=== PATIENT | male | born 1995 | race Caucasian/White ===

== ENCOUNTER 2017-01-04 16:30 | Emergency (ER) | payer OTHER, SELFPAY ==
[~2017-01-04] VITALS: Ht 172.7 cm; Wt 65.9 kg
[2017-01-04 20:09] VITALS: BP 128/62
--- NOTE | 2017-01-05 07:13 | ECGEPIP ---
Stationary ECG Study [facility] - ED Test Date: 2017-01-04 Pat Name: VICTOR MANUEL FISHER Department: Room: - Gender: M Travel Registered Nurse Oncology: tm : 1995 Requested By: WENCESLAO Stock PA-C Order Number: [id number] Reading MD: Flip Montes Measurements Intervals [place] Rate: 52 P: 74 DC: 143 QRS: 78 QRSD: 86 T: 47 QT: 381 QTc: 356 Interpretive Statements SINUS BRADYCARDIA WITH OCCASIONAL SUPRAVENTRICULAR PREMATURE COMPLEXES ST ELEVATION, PROBABLY EARLY REPOLARIZATION POSSIBLE LEFT ATRIAL ENLARGEMENT NO PRIORS Electronically Signed On 01-05-2017 7:12:43 EDT by Flip Montes
== END 2017-01-04 20:11 | disposition home or self-care (01) ==
LOC: M ED 16:30
DX: R07.89 Other chest pain (principal); Z72.0 Tobacco use

== ENCOUNTER 2019-04-18 16:29 | Emergency (ER) | payer OTHER, SELFPAY ==
[~2019-04-18] VITALS: Ht 175.3 cm; Wt 65.5 kg
[2019-04-18] MEDS ORDERED: ZOFR4TAB16 PO (16:37)
[2019-04-18 17:39] LABS: INFLUENZA A AMPLIFICATION NEGATIVE (NEGATIVE); INFLUENZA B AMPLIFICATION NEGATIVE (NEGATIVE)
[2019-04-18] MEDS ORDERED: NS 1,000 ML IV ONE (18:15)
[2019-04-18] MEDS ORDERED: ONDANSETRON 4MG/2ML VIAL (J2405) IV ONE (18:15)
[2019-04-18 18:30] LABS: BASO % 0.6 % (0.0-1.0); EOS # 0.1 10^3/uL (0.0-0.5); EOS % 1.8 % (0.0-3.0); HEMOGLOBIN 14.5 g/dl (13.5-17.5); LYMPH # 2.5 10^3/uL (1.5-5.0); LYMPH % 36.1 % (24.0-44.0); MEAN CORPUSCULAR HEMOGLOBIN 29.7 pg (27.0-33.0); MEAN CORPUSCULAR VOLUME 90.2 fl (80.0-96.0); MONO # 0.5 10^3/uL (0.0-0.8); MONO % 7.8 % (0.0-5.0); NEUTROPHILS # 3.6 10^3/uL (1.5-8.5); NEUTROPHILS % 53.4 % (36.0-66.0); PLATELET COUNT, AUTOMATED 318 10^3/uL (150-450); RED BLOOD COUNT 4.88 10^6/uL (4.30-6.10); WHITE BLOOD COUNT 6.8 10^3/uL (4.0-10.0)
[2019-04-18 18:56] LABS: ALBUMIN 4.7 GM/DL (3.2-5.2); ALT/SGPT 26 U/L (12-78); BILIRUBIN,DIRECT 0.1 MG/DL (0.0-0.2); BILIRUBIN,TOTAL 0.5 MG/DL (0.2-1.0); BLOOD UREA NITROGEN 15 MG/DL (7-18); CARBON DIOXIDE LEVEL 30 MEQ/L (21-32); CHLORIDE LEVEL 105 MEQ/L (98-107); CREATININE FOR GFR 1.14 MG/DL (0.70-1.30); GLOMERULAR FILTRATION RATE > 60.0 (>60); GLUCOSE, FASTING 90 MG/DL (70-100); LIPASE 123 U/L (73-393); SODIUM LEVEL 139 MEQ/L (136-145); TOTAL PROTEIN 8.3 GM/DL (6.4-8.2)
[2019-04-18] MEDS ORDERED: ISOVUE-370 76% 100ML VIAL (Q9967) As Ordered ONE (18:57)
--- NOTE | 2019-04-18 19:27 | REPVR ---
PROCEDURE INFORMATION: Exam: CT Abdomen And Pelvis With Contrast Exam date and time: 04/18/2019 7:05 PM Age: 23 years old Clinical indication: Abdominal pain; Localized; Left lower quadrant (llq); Additional info: Llq pain with n/v R/O diverticulitis TECHNIQUE: Imaging protocol: Computed tomography of the abdomen and pelvis with intravenous contrast. Radiation optimization: All CT scans at this facility use at least one of these dose optimization techniques: automated exposure control; mA and/or kV adjustment per patient size (includes targeted exams where dose is matched to clinical indication); or iterative reconstruction. Contrast material: ISOVUE 370; Contrast volume: 100 ml; Contrast route: IV; COMPARISON: No relevant prior studies available. FINDINGS: Liver: Unremarkable. No mass. Gallbladder and bile ducts: The gallbladder is nearly completely contracted. No calcified gallstone. Normal caliber common bile duct. Pancreas: Unremarkable. No ductal dilation. Spleen: Unremarkable. No splenomegaly. Adrenals: Normal. No mass. Kidneys and ureters: Unremarkable. No stones. No hydronephrosis. Stomach and bowel: Mild wall thickening of the descending colon with minimal hazy density in the adjacent fat is suspicious for mild descending colitis. No colonic diverticuli or colonic diverticulitis. The stomach and small bowel are unremarkable. Appendix: No evidence of appendicitis. Intraperitoneal space: Unremarkable. No free air. No significant fluid collection. Vasculature: Unremarkable. No abdominal aortic aneurysm. Lymph nodes: Unremarkable. No enlarged lymph nodes. Bladder: Unremarkable as visualized. Reproductive: Unremarkable as visualized. Bones/joints: Mild degenerative disc disease at L5-S1. No acute bone or joint abnormality. Soft tissues: Unremarkable. IMPRESSION: Findings suspicious for mild colitis of the descending colon. Electronically signed by: Michael Urena On 04/18/2019 19:29:07 PM
[2019-04-18] MEDS ORDERED: FLAG500T PO (20:14)
[2019-04-18] MEDS ORDERED: CIPR-249 PO (20:14)
[2019-04-18] MEDS ORDERED: metroNIDAZOLE (FLAGYL) 500 MG TAB PO ONE (20:30)
[2019-04-18] MEDS ORDERED: CIPROFLOXACIN 500 MG TAB PO ONE (20:30)
[2019-04-18 20:56] VITALS: BP 148/73
== END 2019-04-18 21:00 | disposition home or self-care (01) ==
LOC: M ED 16:29
DX: K51.90 Ulcerative colitis, unspecified, without complications (principal); Z79.899 Other long term (current) drug therapy
CPT/HCPCS: 74177; 80048; 80076; 81001; 83690; 85025; 87502; 96361; 96374; 99284; J2405; Q9967

== ENCOUNTER 2019-05-11 21:24 | Emergency (ER) | payer OTHER ==
[~2019-05-11] VITALS: Ht 172.7 cm; Wt 66.2 kg
[~2019-05-11 21:24] MED LIST: CIPR-249 PO; FLAG500T PO; ZOFR4TAB16 PO
[2019-05-11 22:09] LABS: BASO # 0.1 10^3/uL (0.0-0.2); BASO % 0.8 % (0.0-1.0); EOS # 0.1 10^3/uL (0.0-0.5); EOS % 1.8 % (0.0-3.0); HEMATOCRIT 40.5 % (42.0-52.0); HEMOGLOBIN 13.3 g/dl (13.5-17.5); LYMPH # 2.5 10^3/uL (1.5-5.0); LYMPH % 41.8 % (24.0-44.0); MEAN CORPUSCULAR HEMOGLOBIN 29.2 pg (27.0-33.0); MEAN CORPUSCULAR HGB CONC 32.8 g/dl (32.0-36.5); MONO # 0.5 10^3/uL (0.0-0.8); MONO % 8.6 % (0.0-5.0); NEUTROPHILS # 2.9 10^3/uL (1.5-8.5); NEUTROPHILS % 46.8 % (36.0-66.0); PLATELET COUNT, AUTOMATED 238 10^3/uL (150-450); RED BLOOD COUNT 4.55 10^6/uL (4.30-6.10); WHITE BLOOD COUNT 6.1 10^3/uL (4.0-10.0)
[2019-05-11 22:47] LABS: ALBUMIN 4.3 GM/DL (3.2-5.2); ALT/SGPT 36 U/L (12-78); BILIRUBIN,DIRECT 0.1 MG/DL (0.0-0.2); BILIRUBIN,TOTAL 0.4 MG/DL (0.2-1.0); BLOOD UREA NITROGEN 17 MG/DL (7-18); CALCIUM LEVEL 8.8 MG/DL (8.5-10.1); CARBON DIOXIDE LEVEL 31 MEQ/L (21-32); CHLORIDE LEVEL 106 MEQ/L (98-107); CREATININE FOR GFR 1.12 MG/DL (0.70-1.30); GLOMERULAR FILTRATION RATE > 60.0 (>60); GLUCOSE, FASTING 90 MG/DL (70-100); LIPASE 129 U/L (73-393); SODIUM LEVEL 139 MEQ/L (136-145); TOTAL PROTEIN 7.6 GM/DL (6.4-8.2)
[2019-05-11] MEDS ORDERED: GASTROGRAFIN SOLUTION 30ML (Q9963) As Ordered ONE (23:30)
[2019-05-11] MEDS: GASTROGRAFIN SOLUTION 30ML PO SCH (23:52)
[2019-05-12] MEDS: GASTROGRAFIN SOLUTION 30ML PO SCH (00:39)
[2019-05-12] MEDS ORDERED: ISOVUE-370 76% 100ML VIAL (Q9967) As Ordered ONE (00:47)
--- NOTE | 2019-05-12 01:58 | REPVR ---
PROCEDURE INFORMATION: Exam: CT Abdomen And Pelvis With Contrast Exam date and time: 05/12/2019 1:20 AM Age: 24 years old Clinical indication: Abdominal pain; Additional info: Llq abd pain TECHNIQUE: Imaging protocol: Computed tomography of the abdomen and pelvis with intravenous contrast. Radiation optimization: All CT scans at this facility use at least one of these dose optimization techniques: automated exposure control; mA and/or kV adjustment per patient size (includes targeted exams where dose is matched to clinical indication); or iterative reconstruction. Contrast material: ISO 370; Contrast volume: 100 ml; Contrast route: IV; Other contrast: Oral; COMPARISON: CT ABD/PEL W/IV CONTRAST ONLY 04/18/2019 7:03 PM FINDINGS: Liver: The liver attenuation is 100 Hounsfield units and the spleen is 135 Hounsfield units. Gallbladder and bile ducts: The gallbladder is contracted with no stones. Pancreas: Normal. No ductal dilation. Spleen: Normal. No splenomegaly. Adrenals: Normal. No mass. Kidneys and ureters: Normal. No hydronephrosis. Stomach and bowel: Much of the colon is collapsed or contracted, particularly distal to the distal transverse colon. Minimal nonspecific left colitis is not excluded. Appendix: There are no changes of appendicitis. A normal appendix is not seen. Intraperitoneal space: Unremarkable. No free air. No significant fluid collection. Vasculature: Low aortic/SMA angle with narrowing of the left renal vein and proximal distension. Incidental note of an accessory retroaortic left renal vein. Findings suggest nutcracker phenomenon. Lymph nodes: Unremarkable. No enlarged lymph nodes. Bladder: There is moderate urinary bladder wall thickening although the bladder is incompletely distended. Reproductive: Unremarkable as visualized. Bones/joints: Unremarkable. No acute fracture. Soft tissues: Unremarkable. IMPRESSION: 1. Mild fatty infiltration of the liver. 2. Question of minimal nonspecific left colitis, increased since 04/18/2019. 3. 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 4. There is moderate bladder wall thickening, however, the bladder is nondistended and is nonspecific. Electronically signed by: Chad Mario On 05/12/2019 01:57:49 AM
[2019-05-12] MEDS ORDERED: NAPR-837 PO (02:49)
[2019-05-12 02:59] VITALS: BP 119/72
--- NOTE | 2019-05-12 10:49 | ED PDOC ---
Post-Departure Follow-Up josias hanson faxed formal report of ct abd/p for fu Paige Hurtado MD May 12, 2019 10:49
== END 2019-05-12 03:00 | disposition home or self-care (01) ==
LOC: M ED 21:24
DX: R10.9 Unspecified abdominal pain (principal); K76.0 Fatty (change of) liver, not elsewhere classified; I87.9 Disorder of vein, unspecified
CPT/HCPCS: 36415; 74177; 80053; 81001; 83690; 85025; 86850; 86900; 86901; 99284; Q9967

== ENCOUNTER 2020-01-07 13:27 | Emergency (ER) | payer OTHER ==
[~2020-01-07] VITALS: Ht 175.3 cm; Wt 66.9 kg
[~2020-01-07 13:27] MED LIST changes: +NAPR-837 PO
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
--- NOTE | 2020-01-07 14:16 | REPVR ---
PROCEDURE INFORMATION: Exam: XR Right Wrist Exam date and time: 01/07/2020 1:52 PM Age: 24 years old Clinical indication: Pain; Wrist; Right; Additional info: Injury TECHNIQUE: Imaging protocol: XR Right wrist. Views: 3 or more views. COMPARISON: No relevant prior studies available. FINDINGS: Bones/joints: No fracture or dislocation at the wrist. The healing fracture of the distal shaft of the right 5th metacarpal is partially imaged. Soft tissues: Soft tissue swelling about the 5th metacarpal fracture is apparent. IMPRESSION: No wrist fracture or dislocation. Electronically signed by: Kym Cadet On 01/07/2020 14:16:43 PM
[2020-01-07 15:06] VITALS: BP 119/71
== END 2020-01-07 15:06 | disposition home or self-care (01) ==
LOC: M ED 13:27
DX: S62.310A Displaced fracture of base of second metacarpal bone, right hand, initial encounter for closed fracture (principal); W22.8XXA Striking against or struck by other objects, initial encounter; Y92.9 Unspecified place or not applicable; Y93.9 Activity, unspecified; Y99.9 Unspecified external cause status; Z79.1 Long term (current) use of non-steroidal anti-inflammatories (NSAID)

== ENCOUNTER 2020-04-19 23:35 | Emergency (ER) | payer OTHER ==
[~2020-04-19] VITALS: Ht 175.3 cm; Wt 71.4 kg
[2020-04-19 23:36] VITALS: BP 139/72
--- OUTSIDE RECORDS SUMMARY | 2020-04-19 23:41 | CCD ---
Author Author [facility] Organization [facility] Address Unknown Phone Unavailable Support Name Relationship Address Phone JOSUE FISHER Next Of Kin [address] [place] [address] [facility] Next Of Kin [address] [place] [address] Unavailable LAURITA GARCIA Next Of Kin [address] [place] [address] Re-disclosure Warning The records that you are about to access may contain information from federally-assisted alcohol or drug abuse programs. If such information is present, then the following federally mandated warning applies: This information has been disclosed to you from records protected by federal confidentiality rules (42 CFR part 2). The federal rules prohibit you from making any further disclosure of this information unless further disclosure is expressly permitted by the written consent of the person to whom it pertains or as otherwise permitted by 42 CFR part 2. A general authorization for the release of medical or other information is NOT sufficient for this purpose. The Federal rules restrict any use of the information to criminally investigate or prosecute any alcohol or drug abuse patient.The records that you are about to access may contain highly sensitive health information, the redisclosure of which is protected by Article 27-F of the [facility] Public Health law. If you continue you may have access to information: Regarding HIV / AIDS; Provided by facilities licensed or operated by the [facility] Office of Mental Health; or Provided by the [facility] Office for People With Developmental Disabilities. If such information is present, then the following [facility] mandated warning applies: This information has been disclosed to you from confidential records which are protected by state law. State law prohibits you from making any further disclosure of this information without the specific written consent of the person to whom it pertains, or as otherwise permitted by law. Any unauthorized further disclosure in violation of state law may result in a fine or intermediate sentence or both. A general authorization for the release of medical or other information is NOT sufficient authorization for further disc losure. Encounters Encounter Providers Location Date Indications Data Source(s ) Outpatient 05/16/2019 02:34:00 PM [facility] Radiology Imaging Insurance Providers Payer name Policy type / Coverage type Policy ID Covered libertarian ID Covered libertarian's relationship to hernandez Policy Hernandez Plan Information EAST ACTIVE DUTY [id number] SP [id number] HUMANA EAST REG O [id number] S [id number] EAST ACTIVE DUTY [id number] SP [id number] EAST ACTIVE DUTY [id number] SP [id number] HUMANA EAST REG O [id number] S [id number] SELF PAY ONLY UNAVAILABLE SP UNAV AILABLE PGBA TECUMSEH DOROTHY O [id number] S [id number] ACTIVE DUTY [id number] SP [id number] N REGIONAL CLAIMS RAN -O/P [id number] 18 [id number]
--- NOTE | 2020-04-20 01:04 | REPVR ---
PROCEDURE INFORMATION: Exam: XR Chest, 2 Views Exam date and time: 04/20/2020 11:33 PM Age: 24 years old Clinical indication: Chest pain; Type not specified; Additional info: Rib pain TECHNIQUE: Imaging protocol: XR of the chest Views: 2 views. COMPARISON: No relevant prior studies available. FINDINGS: Lungs: Unremarkable. No consolidation. Pleural spaces: Unremarkable. No pleural effusion. No pneumothorax. Heart/Mediastinum: Unremarkable. No cardiomegaly. Bones/joints: Unremarkable. IMPRESSION: Negative chest. Electronically signed by: Chad Mario On 04/20/2020 01:04:46 AM
[2020-04-20] MEDS ORDERED: KETOROLAC 30 MG/ML 1ML VIAL IV ONE (02:00)
--- OUTSIDE RECORDS SUMMARY | 2020-04-20 02:05 | CCD ---
Author Author [facility] Organization [facility] Address Unknown Phone Unavailable Support Name Relationship Address Phone JOSUE FISHER Next Of Kin [address] [place] [address] [facility] Next Of Kin [address] [place] [address] Unavailable LAURITA GARCIA Next Of Kin [address] [place] [address] Re-disclosure Warning The records that [...] is protected by Article 27-F of the [facility] Public Health law. If you continue you may have access to information: Regarding HIV / AIDS; Provided by facilities licensed or operated by the [facility] Office of Mental Health; or Provided by the [facility] Office for People With Developmental Disabilities. If such information is present, then the following [facility] mandated warning applies: This information [...] law may result in a fine or fdc sentence or both. A general authorization for the release of medical or other information is NOT sufficient authorization for further disc losure. Encounters Encounter Providers Location Date Indications Data Source(s ) Outpatient 05/16/2019 02:34:00 PM [facility] Radiology Imaging Insurance Providers Payer name Policy type / Coverage type Policy ID Covered libertarian ID Covered libertarian's relationship to hernandez Policy Hernandez Plan Information EAST ACTIVE DUTY [id number] SP [id number] HUMANA EAST REG O [id number] S [id number] EAST ACTIVE DUTY [id number] SP [id number] EAST ACTIVE DUTY [id number] SP [id number] HUMANA EAST REG O [id number] S [id number] SELF PAY ONLY UNAVAILABLE SP UNAV AILABLE PGBA COUNCE DOROTHY O [id number] S [id number] ACTIVE DUTY [id number] SP [id number] N REGIONAL CLAIMS RAN -O/P [id number] 18 [id number]
[2020-04-20] MEDS ORDERED: NAPR-837 PO (02:08)
== END 2020-04-20 02:50 | disposition home or self-care (01) ==
LOC: M ED 23:35
DX: R07.89 Other chest pain (principal)
CPT/HCPCS: 71046; 96374; 99283; J1885

== ENCOUNTER 2020-04-27 09:35 | Emergency (ER) | payer OTHER ==
[~2020-04-27] VITALS: Ht 175.3 cm; Wt 73.4 kg
[2020-04-27 10:21] VITALS: O2SAT 99
--- NOTE | 2020-04-27 10:25 | REP ---
INDICATION: Coronavirus workup. COMPARISON: Comparison chest x-ray April 20, 2020. TECHNIQUE: Portable upright AP chest radiograph. FINDINGS: The lungs are well inflated and free of infiltrate. Pleural angles are sharp. Heart size is normal. Pulmonary vasculature is not increased. IMPRESSION: No active disease. <Electronically signed by Arnoldo Rogers > 04/27/20 1021
[2020-04-27 10:43] LABS: BASO # 0.1 10^3/uL (0.0-0.2); BASO % 0.8 % (0.0-1.0); EOS # 0.1 10^3/uL (0.0-0.5); EOS % 2.2 % (0.0-3.0); HEMATOCRIT 44.8 % (42.0-52.0); HEMOGLOBIN 14.6 g/dl (13.5-17.5); LYMPH # 1.9 10^3/uL (1.5-5.0); LYMPH % 30.7 % (24.0-44.0); MEAN CORPUSCULAR HEMOGLOBIN 28.3 pg (27.0-33.0); MEAN CORPUSCULAR HGB CONC 32.6 g/dl (32.0-36.5); MONO # 0.6 10^3/uL (0.0-0.8); MONO % 9.5 % (0.0-5.0); NEUTROPHILS # 3.4 10^3/uL (1.5-8.5); NEUTROPHILS % 56.6 % (36.0-66.0); PLATELET COUNT, AUTOMATED 292 10^3/uL (150-450); RED BLOOD COUNT 5.15 10^6/uL (4.30-6.10)
[2020-04-27 11:07] LABS: ALBUMIN 4.1 GM/DL (3.2-5.2); ALT/SGPT 39 U/L (12-78); BILIRUBIN,TOTAL 0.3 MG/DL (0.2-1.0); BLOOD UREA NITROGEN 12 MG/DL (7-18); C REACTIVE PROTEIN QUANTITATIV 0.63 MG/DL (0.00-0.30); CALCIUM LEVEL 9.5 MG/DL (8.5-10.1); CARBON DIOXIDE LEVEL 26 MEQ/L (21-32); CHLORIDE LEVEL 105 MEQ/L (98-107); CK-MB VALUE MASS < 1.0 NG/ML (<3.6); CPK CREATINE PHOSPHOKINASE 192 U/L (39-308); CREATININE FOR GFR 1.11 MG/DL (0.70-1.30); GLOMERULAR FILTRATION RATE > 60.0 (>60); GLUCOSE, FASTING 96 MG/DL (70-100); LDH LACTATE DEHYDROGENASE 129 U/L (87-241); MB/CK RELATIVE INDEX 0.52 (< OR =4); POTASSIUM SERUM 4.2 MEQ/L (3.5-5.1); SODIUM LEVEL 137 MEQ/L (136-145); TOTAL PROTEIN 8.3 GM/DL (6.4-8.2); TROPONIN I < 0.02 NG/ML (< 0.10)
[2020-04-27 11:14] LABS: ERYTHROCYTE SEDIMENTATION RATE 12 mm/hr (0-15)
[2020-04-27] MEDS ORDERED: ISOVUE-370 76% 100ML VIAL As Ordered ONE (11:22)
--- NOTE | 2020-04-27 12:08 | REP ---
INDICATION: CP, SOB, pleuritic CP, elevated dimer. COMPARISON: Today's portable chest x-ray.. TECHNIQUE: Contrast dose: 75 ML of Isovue [address] technique: Helical scanning is acquired and overlapping 1.5 mm and contiguous 3 mm axial images are reformatted. In addition, maximum intensity projection and multiplanar re-formation images are generated in sagittal and coronal imaging projections. FINDINGS: There is good opacification in the pulmonary arterial tree. There is no evidence of vessel cut off or filling defect to suggest pulmonary embolus. Homogeneous opacity is seen in the thoracic aorta. There is no evidence of aneurysm or dissection. Lung window settings demonstrate clear well inflated lung paige. There is mild platelike atelectasis in the right middle lobe. No infiltrate is seen. No mass or significant pulmonary nodule is appreciated. There is a very small sliver of pleural fluid in the right chest. No left pleural or pericardial effusion is seen. No hilar or mediastinal mass or adenopathy is observed. There is some residual thymic tissue in the anterior mediastinum. In the upper abdomen, normal adrenal glands are seen. Visualized upper abdominal structures are unremarkable. IMPRESSION: No CT evidence of pulmonary embolus. Platelike atelectasis right middle lobe small right pleural effusion noted otherwise negative CT pulmonary angiogram. <Electronically signed by Arnoldo Rogers > 04/27/20 1117
[2020-04-27 12:48] LABS: CK-MB VALUE MASS < 1.0 NG/ML (<3.6); CPK CREATINE PHOSPHOKINASE 177 U/L (39-308); MB/CK RELATIVE INDEX 0.56 (< OR =4); TROPONIN I < 0.02 NG/ML (< 0.10)
[2020-04-27] MEDS ORDERED: PROAAER10 INH (13:18)
[2020-04-27 13:25] VITALS: BP 130/76
--- NOTE | 2020-04-27 20:10 | ECGEPIP ---
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
--- NOTE | 2020-04-27 20:13 | ECGEPIP ---
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
== END 2020-04-27 14:09 | disposition home or self-care (01) ==
LOC: M ED 09:35
DX: Z11.52 Encounter for screening for COVID-19 (principal); M94.0 Chondrocostal junction syndrome [Tietze]; J90 Pleural effusion, not elsewhere classified; J98.11 Atelectasis; F41.9 Anxiety disorder, unspecified; F43.10 Post-traumatic stress disorder, unspecified; Z87.19 Personal history of other diseases of the digestive system; Z77.098 Contact with and (suspected) exposure to other hazardous, chiefly nonmedicinal, chemicals
CPT/HCPCS: 36415; 71045; 71275; 80053; 82550; 82553; 83615; 84484; 85025; 85379; 85652; 86140; 93005; 99284; Q9967; U0003

== ENCOUNTER 2021-05-13 11:24 | Emergency (ER) | payer OTHER ==
[~2021-05-13] VITALS: Ht 175.3 cm; Wt 77.3 kg
[~2021-05-13 11:24] MED LIST changes: +PROAAER10 INH
[2021-05-13] MEDS ORDERED: IBUPROFEN 800 MG TAB PO ONE (12:00)
[2021-05-13 13:08] VITALS: BP 130/71
== END 2021-05-13 13:09 | disposition home or self-care (01) ==
LOC: M ED 11:24
DX: J06.9 Acute upper respiratory infection, unspecified (principal); Z20.822 Contact with and (suspected) exposure to COVID-19
CPT/HCPCS: 87880; 99283; U0003